=== PATIENT | female | born 1990 | race Caucasian/White ===

== ENCOUNTER 2018-03-09 08:45 | Emergency (ER) | payer SELFPAY ==
[~2018-03-09] VITALS: Ht 157.5 cm; Wt 53.0 kg
[2018-03-09] MEDS ORDERED: SODIUM CHLORIDE 0.9% 1,000 ML IV ONE (09:28)
[2018-03-09] MEDS ORDERED: ONDANSETRON HCL 4MG/2ML INJ IV STA (09:28)
[2018-03-09] MEDS ORDERED: FAMOTIDINE 20MG/2ML VIAL IV ONE (09:30)
[2018-03-09 09:54] LABS: HEMATOCRIT. 41.1 % (36.0-48.0); HEMOGLOBIN. 14.1 g/dL (12.0-16.0); MEAN CORPUSCULAR HEMOGLOBIN 32.9 pg (28.0-32.0); MEAN CORPUSCULAR VOLUME 95.9 fL (81.0-99.0); MEAN PLATELET VOLUME 10.6 fl (7.4-10.4); PLATELET 177 x1000/uL (130-400); RED BLOOD CELL COUNT 4.29 mill/uL (4.2-5.4); RED CELL DISTRIBUTION WIDTH 13.6 % (11.6-14.6)
[2018-03-09 09:57] LABS: CHLORIDE 107 mEq/L (98-107)
[2018-03-09 10:26] LABS: HCG SCREEN NEGATIVE
[2018-03-09 10:33] LABS: PLATELET ESTIMATE NORMAL
[2018-03-09] MEDS ORDERED: KETOROLAC 15MG/ML VIAL IV ONE (11:15)
[2018-03-09] MEDS ORDERED: KETOROLAC 15MG/ML VIAL IV NR (12:30)
[2018-03-09 12:44] LABS: COLOR URINE YELLOW (YELLOW); KETONES URINE TRACE (NEGATIVE); LEUKOCYTE ESTERASE URINE NEGATIVE (NEGATIVE); NITRITE URINE NEGATIVE (NEGATIVE); OCCULT BLOOD URINE 1+ (NEGATIVE); PH URINE 5.5 (4.5-8.0); PROTEIN URINE NEGATIVE (NEGATIVE); SPECIFIC GRAVITY URINE 1.021 (1.005-1.030); UROBILINOGEN URINE 0.2 E.U./dL (0.2-1.0)
[2018-03-09 12:45] LABS: CLARITY URINE HAZY (CLEAR)
[2018-03-09 14:20] VITALS: BP 105/72
== END 2018-03-09 14:20 | disposition home or self-care (01) ==
LOC: ER 08:45
DX: R10.2 Pelvic and perineal pain (principal); R11.2 Nausea with vomiting, unspecified; R19.7 Diarrhea, unspecified; N83.202 Unspecified ovarian cyst, left side
CPT/HCPCS: 36415; 76830; 76856; 80053; 81003; 83690; 84703; 85025; 96361; 96374; 96375; 99284; J1885; J2405; J3490; J7030

== ENCOUNTER 2018-11-07 12:15 | Emergency (ER) | payer OTHER ==
[~2018-11-07] VITALS: Ht 157.5 cm; Wt 54.0 kg
[2018-11-07] MEDS ORDERED: ONDANSETRON HCL 4MG/2ML INJ IV STA (14:58)
[2018-11-07] MEDS ORDERED: SODIUM CHLORIDE 0.9% 1,000 ML IV ONE (14:58)
[2018-11-07] MEDS ORDERED: KETOROLAC 30MG/ML VIAL IV STA (14:58)
[2018-11-07 15:56] LABS: BASOPHILS % 0.9 % (0.0-2.0); CHLORIDE 104 mEq/L (98-107); EOSINOPHILS % 0.7 % (0.0-5.0); HEMATOCRIT. 43.7 % (36.0-48.0); HEMOGLOBIN. 14.9 g/dL (12.0-16.0); LYMPHOCYTES % 37.2 % (20.0-50.0); MEAN CORPUSCULAR VOLUME 96.8 fL (81.0-99.0); MEAN PLATELET VOLUME 10.7 fl (7.4-10.4); MONOCYTES % 7.1 % (2.0-8.0); NEUTROPHILS % 54.1 % (40.0-76.0); PLATELET 196 x1000/uL (130-400); PROTHROMBIN TIME 10.5 sec (9.6-11.0); RED BLOOD CELL COUNT 4.52 mill/uL (4.2-5.4); RED CELL DISTRIBUTION WIDTH 13.1 % (11.6-14.6)
[2018-11-07 16:01] LABS: CLARITY URINE CLEAR (CLEAR); COLOR URINE YELLOW (YELLOW); KETONES URINE NEGATIVE (NEGATIVE); LEUKOCYTE ESTERASE URINE NEGATIVE (NEGATIVE); NITRITE URINE NEGATIVE (NEGATIVE); OCCULT BLOOD URINE TRACE (NEGATIVE); PROTEIN URINE NEGATIVE (NEGATIVE); SPECIFIC GRAVITY URINE 1.021 (1.005-1.030); UROBILINOGEN URINE 0.2 E.U./dL (0.2-1.0)
[2018-11-07 18:30] VITALS: BP 127/78
== END 2018-11-07 18:45 | disposition home or self-care (01) ==
LOC: ER 13:28
DX: N83.201 Unspecified ovarian cyst, right side (principal)
CPT/HCPCS: 36415; 76830; 76856; 80053; 81003; 81025; 85025; 85610; 96374; 99284; J1885; J7030; J2405

== ENCOUNTER 2019-04-26 11:04 | Emergency (ER) | payer MEDICAID, OTHER ==
[~2019-04-26] VITALS: Ht 157.5 cm; Wt 52.0 kg
[2019-04-26] MEDS ORDERED: ONDANSETRON HCL 4MG/2ML INJ IV STA (12:59)
[2019-04-26] MEDS ORDERED: SODIUM CHLORIDE 0.9% 1,000 ML IV ONE (12:59)
[2019-04-26] MEDS ORDERED: KETOROLAC 30MG/ML VIAL IV STA (12:59)
[2019-04-26 13:41] LABS: BASOPHILS % 0.8 % (0.0-2.0); EOSINOPHILS % 0.3 % (0.0-5.0); HEMATOCRIT. 43.5 % (36.0-48.0); HEMOGLOBIN. 14.8 g/dL (12.0-16.0); LYMPHOCYTES % 33.6 % (20.0-50.0); MEAN CORPUSCULAR VOLUME 97.1 fL (81.0-99.0); MEAN PLATELET VOLUME 10.5 fl (7.4-10.4); MONOCYTES % 7.2 % (2.0-8.0); NEUTROPHILS % 58.1 % (40.0-76.0); PLATELET 212 x1000/uL (130-400); RED BLOOD CELL COUNT 4.48 mill/uL (4.2-5.4); RED CELL DISTRIBUTION WIDTH 12.9 % (11.6-14.6)
[2019-04-26 13:47] LABS: CHLORIDE 108 mEq/L (98-107)
[2019-04-26 14:15] LABS: CLARITY URINE TURBID (CLEAR); COLOR URINE DARK YELLOW (YELLOW); KETONES URINE 1+ (NEGATIVE); LEUKOCYTE ESTERASE URINE NEGATIVE (NEGATIVE); NITRITE URINE NEGATIVE (NEGATIVE); OCCULT BLOOD URINE NEGATIVE (NEGATIVE); PH URINE 5.5 (4.5-8.0); PROTEIN URINE TRACE (NEGATIVE); SPECIFIC GRAVITY URINE 1.032 (1.005-1.030); UROBILINOGEN URINE 0.2 E.U./dL (0.2-1.0)
[2019-04-26 15:00] VITALS: BP 117/74
== END 2019-04-26 15:18 | disposition home or self-care (01) ==
LOC: ER 11:04
DX: N30.00 Acute cystitis without hematuria (principal)
CPT/HCPCS: 36415; 76830; 76856; 80053; 81003; 81025; 83690; 85025; 87086; 93976; 96374; 96375; 99284; J1885; J2405; J7030; Z7610

== ENCOUNTER 2019-05-07 19:14 | Emergency (ER) | payer MEDICAID ==
[~2019-05-07] VITALS: Ht 157.5 cm; Wt 52.0 kg
[2019-05-07 19:44] VITALS: BP 11/64
== END 2019-05-07 19:30 | disposition left against medical advice (07) ==
LOC: ER 19:14
DX: O26.891 Other specified pregnancy related conditions, first trimester (principal); R10.2 Pelvic and perineal pain; Z53.21 Procedure and treatment not carried out due to patient leaving prior to being seen by health care provider

== ENCOUNTER 2019-11-13 16:40 | Observation (INO) | payer MEDICAID ==
[~2019-11-13] VITALS: Ht 157.5 cm; Wt 59.0 kg
[2019-11-13] MEDS ORDERED: LACTATED RINGERS 1,000 ML IV SCH (18:30)
[2019-11-13 19:17] LABS: BASOPHILS % 0.4 % (0.0-2.0); EOSINOPHILS % 0.7 % (0.0-5.0); HEMATOCRIT. 28.9 % (36.0-48.0); HEMOGLOBIN. 9.8 g/dL (12.0-16.0); LYMPHOCYTES % 28.3 % (20.0-50.0); MEAN CORPUSCULAR HEMOGLOBIN 31.2 pg (28.0-32.0); MEAN CORPUSCULAR VOLUME 92.2 fL (81.0-99.0); MEAN PLATELET VOLUME 11.8 fl (7.4-10.4); MONOCYTES % 6.7 % (2.0-8.0); NEUTROPHILS % 63.9 % (40.0-76.0); PLATELET 174 x1000/uL (130-400); RED BLOOD CELL COUNT 3.14 mill/uL (4.2-5.4)
[2019-11-13 19:21] LABS: CHLORIDE 110 mEq/L (98-107)
[2019-11-13 19:29] LABS: CLARITY URINE CLEAR (CLEAR); COLOR URINE DK YELLOW (YELLOW); KETONES URINE NEGATIVE (NEGATIVE); LEUKOCYTE ESTERASE URINE TRACE (NEGATIVE); NITRITE URINE NEGATIVE (NEGATIVE); OCCULT BLOOD URINE NEGATIVE (NEGATIVE); PROTEIN URINE 1+ (NEGATIVE); SPECIFIC GRAVITY URINE 1.019 (1.005-1.030)
[2019-11-13] MEDS ORDERED: DOCUSATE SODIUM 100MG CAPSULE PO NR (19:30)
[2019-11-13] MEDS ORDERED: CITRIC ACID/SODIUM CITRATE SOLN 30ML UDC PO NR (20:25)
== END 2019-11-13 21:30 | disposition home or self-care (01) ==
LOC: 8EST NSY 16:40 → 8 EST A/PP 16:59
PROVIDERS: ADMIT Obstetrics & Gynecology; ATTEND Obstetrics & Gynecology
DX: O26.893 Other specified pregnancy related conditions, third trimester (principal); R10.13 Epigastric pain; O99.89 Other specified diseases and conditions complicating pregnancy, childbirth and the puerperium; M54.5 Low back pain; Z3A.31 31 weeks gestation of pregnancy
CPT/HCPCS: 36415; 80053; 81003; 85025; 96360; 96361; 99281; G0378

== ENCOUNTER 2019-12-03 21:17 | Observation (INO) | payer MEDICAID ==
[2019-12-03] MEDS ORDERED: PREN-176 PO (22:14)
[2019-12-03] MEDS: LACTATED RINGERS 1,000 ML IV SCH (23:19)
[2019-12-03 23:50] LABS: BASOPHILS % 0.8 % (0.0-2.0); EOSINOPHILS % 0.6 % (0.0-5.0); HEMATOCRIT. 27.5 % (36.0-48.0); HEMOGLOBIN. 9.4 g/dL (12.0-16.0); LYMPHOCYTES % 34.7 % (20.0-50.0); MEAN CORPUSCULAR HEMOGLOBIN 30.9 pg (28.0-32.0); MEAN CORPUSCULAR VOLUME 90.7 fL (81.0-99.0); MONOCYTES % 7.9 % (2.0-8.0); PLATELET 134 x1000/uL (130-400); RED BLOOD CELL COUNT 3.04 mill/uL (4.2-5.4); RED CELL DISTRIBUTION WIDTH 13.5 % (11.6-14.6)
[2019-12-03 23:55] LABS: CHLORIDE 111 mEq/L (98-107)
[2019-12-03 23:56] LABS: CLARITY URINE CLOUDY (CLEAR); COLOR URINE DK YELLOW (YELLOW); KETONES URINE NEGATIVE (NEGATIVE); LEUKOCYTE ESTERASE URINE 1+ (NEGATIVE); NITRITE URINE NEGATIVE (NEGATIVE); OCCULT BLOOD URINE NEGATIVE (NEGATIVE); PROTEIN URINE 1+ (NEGATIVE); SPECIFIC GRAVITY URINE 1.026 (1.005-1.030)
[2019-12-04] LABS: D-DIMER 3.76 mg/L FEU (<0.50); INR 0.9; PARTIAL THROMBOPLASTIN TIME 26.4 sec (23.4-31.0); PROTHROMBIN TIME 9.2 sec (9.6-11.0)
[2019-12-04] MEDS: LACTATED RINGERS 1,000 ML IV SCH (01:22)
== END 2019-12-04 10:00 | disposition home or self-care (01) ==
LOC: OBSVTOIN 21:17 → 8 EST LDRP 21:17 → INTOOBSV 21:17
PROVIDERS: ADMIT Obstetrics & Gynecology; ATTEND Obstetrics & Gynecology
DX: O12.03 Gestational edema, third trimester (principal); O62.9 Abnormality of forces of labor, unspecified; Z3A.34 34 weeks gestation of pregnancy; Z79.899 Other long term (current) drug therapy
CPT/HCPCS: 36415; 59025; 76805; 76815; 76817; 76818; 80053; 80076; 81003; 82239; 84550; 85025; 85379; 85384; 85610; 85730; 96360; 96361; G0378; 99281

== ENCOUNTER 2020-11-18 20:50 | Emergency (ER) | payer MEDICAID ==
[~2020-11-18] VITALS: Ht 157.5 cm; Wt 50.0 kg
[2020-11-19 01:10] LABS: BASOPHILS % 0.4 % (0.0-2.0); HEMATOCRIT. 35.6 % (36.0-48.0); HEMOGLOBIN. 12.3 g/dL (12.0-16.0); LYMPHOCYTES % 32.8 % (20.0-50.0); MEAN CORPUSCULAR HEMOGLOBIN 32.7 pg (28.0-32.0); MEAN CORPUSCULAR VOLUME 94.8 fL (81.0-99.0); MEAN PLATELET VOLUME 10.7 fl (7.4-10.4); MONOCYTES % 6.8 % (2.0-8.0); PLATELET 193 x1000/uL (130-400); RED BLOOD CELL COUNT 3.76 mill/uL (4.2-5.4); RED CELL DISTRIBUTION WIDTH 13.3 % (11.6-14.6)
[2020-11-19 01:16] LABS: CHLORIDE 108 mEq/L (98-107)
[2020-11-19 01:20] LABS: CLARITY URINE CLEAR (CLEAR); COLOR URINE YELLOW (YELLOW); KETONES URINE NEGATIVE (NEGATIVE); LEUKOCYTE ESTERASE URINE NEGATIVE (NEGATIVE); NITRITE URINE NEGATIVE (NEGATIVE); OCCULT BLOOD URINE NEGATIVE (NEGATIVE); PROTEIN URINE NEGATIVE (NEGATIVE); SPECIFIC GRAVITY URINE 1.035 (1.005-1.030)
[2020-11-19 01:40] LABS: B-HCG QUANTITATIVE 4676 mIU/mL (<3)
[2020-11-19] MEDS ORDERED: ACETAMINOPHEN 325MG TABLET PO ONE (02:00)
[2020-11-19 04:19] VITALS: BP 127/79
== END 2020-11-19 04:22 | disposition home or self-care (01) ==
LOC: ER 20:50
DX: O26.891 Other specified pregnancy related conditions, first trimester (principal); Z3A.01 Less than 8 weeks gestation of pregnancy
CPT/HCPCS: 36415; 76801; 80053; 81003; 81025; 84702; 85025; 86850; 86900; 99284

== ENCOUNTER 2020-12-24 23:06 | Emergency (ER) | payer MEDICAID ==
[~2020-12-24] VITALS: Ht 157.5 cm; Wt 52.0 kg
[2020-12-25 01:36] LABS: BASOPHILS % 0.6 % (0.0-2.0); HEMATOCRIT. 35.5 % (36.0-48.0); HEMOGLOBIN. 12.2 g/dL (12.0-16.0); LYMPHOCYTES % 34.7 % (20.0-50.0); MEAN CORPUSCULAR HEMOGLOBIN 32.4 pg (28.0-32.0); MEAN CORPUSCULAR VOLUME 94.2 fL (81.0-99.0); MEAN PLATELET VOLUME 10.9 fl (7.4-10.4); MONOCYTES % 8.9 % (2.0-8.0); NEUTROPHILS % 53.8 % (40.0-76.0); PLATELET 205 x1000/uL (130-400); RED BLOOD CELL COUNT 3.77 mill/uL (4.2-5.4); RED CELL DISTRIBUTION WIDTH 12.6 % (11.6-14.6)
[2020-12-25 01:42] LABS: CHLORIDE 108 mEq/L (98-107)
[2020-12-25 02:06] LABS: B-HCG QUANTITATIVE 2478 mIU/mL (<3)
[2020-12-25 02:18] VITALS: BP 119/61
== END 2020-12-25 02:22 | disposition home or self-care (01) ==
LOC: ER 23:06
DX: O02.1 Missed abortion (principal); N83.291 Other ovarian cyst, right side; N83.02 Follicular cyst of left ovary
CPT/HCPCS: 36415; 76830; 76856; 80053; 81025; 84702; 85025; 86850; 86900; 99284

== ENCOUNTER 2021-11-12 19:07 | Observation (INO) | payer OTHER ==
[~2021-11-12] VITALS: Ht 157.5 cm; Wt 54.4 kg
[2021-11-12] MEDS ORDERED: ACETAMINOPHEN 650MG/20.3ML UDC PO NR (20:30)
[2021-11-12] MEDS ORDERED: ACETAMINOPHEN 325MG TABLET PO NR (20:45)
[2021-11-12 21:45] LABS: HEMOGLOBIN 9.9 g/dL (12.0-16.0); MEAN CORPUSCULAR HEMOGLOBIN 31.3 pg (28.0-32.0); MEAN CORPUSCULAR VOLUME 95.1 fL (81.0-99.0); PLATELET 213 x1000/uL (130-400); RED BLOOD CELL COUNT 3.15 mill/uL (4.2-5.4); RED CELL DISTRIBUTION WIDTH 13.2 % (11.6-14.6)
[2021-11-12 22:19] LABS: CLARITY URINE CLOUDY (CLEAR); COLOR URINE YELLOW (YELLOW); KETONES URINE 4+ (NEGATIVE); LEUKOCYTE ESTERASE URINE 2+ (NEGATIVE); NITRITE URINE NEGATIVE (NEGATIVE); OCCULT BLOOD URINE NEGATIVE (NEGATIVE); PROTEIN URINE 1+ (NEGATIVE); SPECIFIC GRAVITY URINE 1.025 (1.005-1.030)
[2021-11-12] MEDS ORDERED: prenatal vitamin (22:40)
== END 2021-11-12 23:30 | disposition home or self-care (01) ==
LOC: 8 EST LDRP 19:07
PROVIDERS: ADMIT Obstetrics & Gynecology; ATTEND Obstetrics & Gynecology
DX: O26.893 Other specified pregnancy related conditions, third trimester (principal); R10.2 Pelvic and perineal pain; R10.30 Lower abdominal pain, unspecified; Z3A.30 30 weeks gestation of pregnancy
CPT/HCPCS: 36415; 59025; 76805; 76818; 81003; 85027; 99281; G0378

== ENCOUNTER 2021-12-15 17:13 | Observation (INO) | payer OTHER ==
[~2021-12-15] VITALS: Ht 157.5 cm; Wt 61.2 kg
[~2021-12-15 17:13] MED LIST: prenatal vitamin
[2021-12-15 20:23] LABS: CLARITY URINE CLOUDY (CLEAR); COLOR URINE YELLOW (YELLOW); KETONES URINE TRACE (NEGATIVE); LEUKOCYTE ESTERASE URINE 1+ (NEGATIVE); NITRITE URINE NEGATIVE (NEGATIVE); OCCULT BLOOD URINE NEGATIVE (NEGATIVE); PH URINE 6.5 (4.5-8.0); PROTEIN URINE 2+ (NEGATIVE); SPECIFIC GRAVITY URINE 1.023 (1.005-1.030)
[2021-12-15] MEDS: LACTATED RINGERS 1,000 ML IV SCH ×3 (20:30→20:32)
[2021-12-15] MEDS ORDERED: BETAMETHASONE ACET/BETAMET 30 MG/5 ML VIAL IM ONE (23:45)
== END 2021-12-16 00:25 | disposition home or self-care (01) ==
LOC: 8 EST LDRP 17:13
PROVIDERS: ADMIT Obstetrics & Gynecology; ATTEND Obstetrics & Gynecology
DX: O99.891 Other specified diseases and conditions complicating pregnancy (principal); M54.50 Low back pain, unspecified; O26.893 Other specified pregnancy related conditions, third trimester; R10.30 Lower abdominal pain, unspecified; O62.9 Abnormality of forces of labor, unspecified; Z3A.34 34 weeks gestation of pregnancy
CPT/HCPCS: 59025; 76805; 76818; 81003; 96360; 96361; 96372; G0378; J0702; 99281

== ENCOUNTER 2021-12-19 10:46 | Inpatient (IN) | payer OTHER ==
[~2021-12-19] VITALS: Ht 157.5 cm; Wt 59.0 kg
[2021-12-19] MEDS ORDERED: METHYLERGONOVINE MALEATE 0.2 MG/ML IM PRN ×2 (11:15→11:45)
[2021-12-19] MEDS ORDERED: OXYTOCIN 30 UNITS/500ML NS PMX 500 ML IV SCH (11:15)
[2021-12-19] MEDS ORDERED: CARBOPROST TROMETHAMINE 250 MCG/ML AMPUL IM PRN (11:15)
[2021-12-19] MEDS ORDERED: LACTATED RINGERS 1,000 ML IV SCH (11:30)
[2021-12-19] MEDS ORDERED: LANOLIN OINT 7GM TUBE TOP PRN (11:45)
[2021-12-19] MEDS ORDERED: ACETAMINOPHEN WITH CODEINE 300/30MG TABLET PO PRN (11:45)
[2021-12-19] MEDS ORDERED: HEMORRHOIDAL SUPP PR PRN (11:45)
[2021-12-19] MEDS ORDERED: IBUPROFEN 400MG TABLET PO PRN (11:45)
[2021-12-19] MEDS ORDERED: BISACODYL 10MG SUPP PR PRN (11:45)
[2021-12-19] MEDS ORDERED: GLYCERIN/WITCH HAZEL LEAF MEDICATED PAD TOP PRN (11:45)
[2021-12-19] MEDS ORDERED: DIPHENHYDRAMINE 25MG CAPSULE PO PRN (11:45)
[2021-12-19] MEDS: OXYTOCIN 30 UNITS/500ML NS PMX 500 ML IV SCH ×2 (11:56→12:55)
[2021-12-19] MEDS ORDERED: NALOXONE HCL 0.4MG/ML VIAL IV PRN (12:00)
[2021-12-19] MEDS: IBUPROFEN 800MG TABLET PO PRN ×2 (12:10→20:00)
[2021-12-19] MEDS: LABETALOL HCL 100MG TABLET PO SCH ×2 (12:54→22:30)
[2021-12-19 13:50] VITALS: BP 130/80
[2021-12-19 14:20] VITALS: BP 126/82
[2021-12-19 14:23] LABS: CLARITY URINE CLEAR (CLEAR); COLOR URINE RED (YELLOW); KETONES URINE NEGATIVE (NEGATIVE); LEUKOCYTE ESTERASE URINE 1+ (NEGATIVE); NITRITE URINE NEGATIVE (NEGATIVE); OCCULT BLOOD URINE 3+ (NEGATIVE); PROTEIN URINE 1+ (NEGATIVE); SPECIFIC GRAVITY URINE 1.006 (1.005-1.030); UROBILINOGEN URINE 0.2 E.U./dL (0.2-1.0)
[2021-12-19 14:29] LABS: BASOPHILS % 0.5 % (0.0-2.0); EOSINOPHILS % 0.1 % (0.0-5.0); HEMATOCRIT. 27.7 % (36.0-48.0); HEMOGLOBIN. 8.8 g/dL (12.0-16.0); LYMPHOCYTES % 29.7 % (20.0-50.0); MEAN CORPUSCULAR HEMOGLOBIN 28.8 pg (28.0-32.0); MEAN CORPUSCULAR VOLUME 90.1 fL (81.0-99.0); MEAN PLATELET VOLUME 12.4 fl (7.4-10.4); MONOCYTES % 7.8 % (2.0-8.0); NEUTROPHILS % 61.9 % (40.0-76.0); PLATELET 155 x1000/uL (130-400); RED BLOOD CELL COUNT 3.08 mill/uL (4.2-5.4)
[2021-12-19 14:34] LABS: INR 0.9; PARTIAL THROMBOPLASTIN TIME 24.4 sec (23.4-31.0); PROTHROMBIN TIME 9.3 sec (9.6-11.0)
[2021-12-19 14:50] LABS: *BARBITURATES SCREEN URINE NEGATIVE (NEGATIVE); *BENZODIAZEPINES SCREEN URINE NEGATIVE (NEGATIVE); *COCAINE SCREEN URINE NEGATIVE (NEGATIVE); CANNABINOID URINE SCREEN NEGATIVE (NEGATIVE); METHADONE URINE SCREEN NEGATIVE (NEGATIVE); OPIATES URINE SCREEN NEGATIVE (NEGATIVE); PHENCYCLIDINE URINE SCREEN NEGATIVE (NEGATIVE)
[2021-12-19 15:23] LABS: *AMPHETAMINES SCREEN URINE PRESUMTIVE POSITIVE (NEGATIVE)
[2021-12-19 15:58] LABS: HEPATITIS B SURFACE ANTIGEN NEGATIVE
[2021-12-19 20:00] VITALS: BP 121/87
[2021-12-19] MEDS: DOCUSATE SODIUM 100MG CAPSULE PO SCH (22:29)
[2021-12-20 04:15] VITALS: BP 108/71
[2021-12-20] MEDS: IBUPROFEN 800MG TABLET PO PRN ×3 (04:26→21:45)
[2021-12-20 07:44] LABS: BASOPHILS % 0.6 % (0.0-2.0); EOSINOPHILS % 0.4 % (0.0-5.0); HEMATOCRIT. 24.2 % (36.0-48.0); HEMOGLOBIN. 7.8 g/dL (12.0-16.0); LYMPHOCYTES % 24.6 % (20.0-50.0); MEAN CORPUSCULAR HEMOGLOBIN 29.3 pg (28.0-32.0); MEAN CORPUSCULAR VOLUME 90.2 fL (81.0-99.0); MEAN PLATELET VOLUME 12.6 fl (7.4-10.4); MONOCYTES % 6.3 % (2.0-8.0); NEUTROPHILS % 68.1 % (40.0-76.0); PLATELET 138 x1000/uL (130-400); RED BLOOD CELL COUNT 2.68 mill/uL (4.2-5.4); RED CELL DISTRIBUTION WIDTH 13.7 % (11.6-14.6)
[2021-12-20 08:30] VITALS: BP 116/77
[2021-12-20] MEDS: FERROUS SULFATE 325MG TABLET PO SCH ×2 (09:15→16:03)
[2021-12-20] MEDS: PRENATAL VIT/FE FUMARATE/FA TABLET PO SCH (09:15)
[2021-12-20] MEDS: LABETALOL HCL 100MG TABLET PO SCH ×2 (09:15→21:44)
[2021-12-20 16:00] VITALS: BP 120/78
[2021-12-20 20:00] VITALS: BP 123/81
[2021-12-20] MEDS: DOCUSATE SODIUM 100MG CAPSULE PO SCH (21:43)
[2021-12-21 04:00] VITALS: BP 113/74
[2021-12-21] MEDS: FERROUS SULFATE 325MG TABLET PO SCH (08:51)
[2021-12-21] MEDS: PRENATAL VIT/FE FUMARATE/FA TABLET PO SCH (08:51)
[2021-12-21] MEDS: IBUPROFEN 800MG TABLET PO PRN (08:52)
[2021-12-21] MEDS: LABETALOL HCL 100MG TABLET PO SCH (08:52)
[2021-12-21 09:30] VITALS: BP 120/80
[2021-12-25 17:11] LABS: AMPHETAMINE CONF URINE Positive (.)
== END 2021-12-21 13:30 | disposition home or self-care (01) | DRG 560 ==
LOC: 8 EST LDRP 10:46 → OBSVTOIN 10:47 → 8EST 13:08
PROVIDERS: ADMIT Specialist; ATTEND Specialist
PROC: 10E0XZZ Delivery of Products of Conception, External Approach (ICD-10-PCS; principal; 2021-12-19)
DX: O60.14X0 Preterm labor third trimester with preterm delivery third trimester, not applicable or unspecified (principal); Z37.0 Single live birth; O99.324 Drug use complicating childbirth; O99.02 Anemia complicating childbirth; Z20.822 Contact with and (suspected) exposure to COVID-19; F15.10 Other stimulant abuse, uncomplicated; Z3A.35 35 weeks gestation of pregnancy
CPT/HCPCS: 36415; 80305; 81003; 85025; 86592; 86703; 86762; 86850; 86900; 87340; 87426; 99281; G0378; J2590

== ENCOUNTER 2022-01-21 22:40 | Emergency (ER) | payer OTHER ==
[~2022-01-21] VITALS: Ht 157.5 cm; Wt 52.7 kg
[2022-01-21 22:55] VITALS: BP 114/84
== END 2022-01-22 02:22 | disposition left against medical advice (07) ==
LOC: ER 22:40
DX: Z53.21 Procedure and treatment not carried out due to patient leaving prior to being seen by health care provider (principal)

== ENCOUNTER 2023-09-26 01:43 | Emergency (ER) | payer MEDICAID, OTHER ==
[~2023-09-26] VITALS: Ht 157.5 cm; Wt 67.0 kg
[2023-09-26 01:54] VITALS: BP 110/69; PULSE 92; RESP 15; TEMP 98.6; O2SAT 100
[2023-09-26 05:12] LABS: BASOPHILS % 0.6 % (0.0-2.0); EOSINOPHILS % 0.2 % (0.0-5.0); HEMATOCRIT. 37.3 % (36.0-48.0); HEMOGLOBIN. 12.4 g/dL (12.0-16.0); LYMPHOCYTES % 29.1 % (20.0-50.0); MEAN CORPUSCULAR HEMOGLOBIN 31.9 pg (28.0-32.0); MEAN CORPUSCULAR HGB CONC 33.3 g/dL (31.0-37.0); MEAN CORPUSCULAR VOLUME 95.7 fL (81.0-99.0); MONOCYTES % 6.1 % (2.0-8.0); PLATELET 179 x1000/uL (130-400); WHITE BLOOD COUNT 6.2 x1000/uL (4.5-11.0)
[2023-09-26 05:17] LABS: CHLORIDE 109 mEq/L (98-107); POTASSIUM 4.2 mEq/L (3.5-5.1); SODIUM 138 mEq/L (136-145)
[2023-09-26 05:18] LABS: CARBON DIOXIDE 25 mEq/L (21-32)
[2023-09-26 05:19] LABS: CALCIUM 9.9 mg/dL (8.7-10.4)
[2023-09-26 05:23] LABS: CREATININE 0.7 mg/dL (0.6-1.0); GLUCOSE 91 mg/dL (70-105); UREA NITROGEN BLOOD 8 mg/dL (9-23)
[2023-09-26 05:31] LABS: TROPONIN I HIGH SENSITIVITY < 4 ng/L (3.0-34)
== END 2023-09-26 06:06 | disposition left against medical advice (07) ==
LOC: ER 01:43
DX: R07.89 Other chest pain (principal)
CPT/HCPCS: 36415; 80048; 84484; 85025; 93005; 99284